=== PATIENT | male | born 1945 | race Caucasian/White ===

== ENCOUNTER → 2018-12-14 | Day surgery (SDC) | payer MEDICARE ==
[~2018-12-14] MED LIST: ASPIR 8181 MG PO; GLUCAGON FOR INJ 1 MG VIAL ONE; HYOSCYAMINE SULFATE 0.5 MG/ML INJ ONE; LIDOCAINE HCL 2% LOCAL INJ 5 ML SDV VIAL INJ ONE; LOSARTAN POTAS100 MG PO; METOPROLOL SUC100 MG PO; MIDAZOLAM HCL 2 MG/2 ML VIAL ONE; PROPOFOL IV EMULSION 10 MG/ML 50 ML VIAL ONE; SIMVASTATIN20 MG PO
--- OUTSIDE RECORDS SUMMARY | 2018-12-14 08:47 | XMS REPORT ---
Author Author [facility] Address Unknown Phone Unavailable Care Team Providers Care Rope Cleaner Name Role Phone VANI SILAS Unavailable Unavailable Problems This patient has no known problems. Allergies, Adverse Reactions, Alerts This patient has no known allergies or adverse reactions. Medications This patient has no known medications. Results Test Description Test Time Test Comments Text Results Atomic Results Result Comments US RENAL RETROPERITONEAL COMP [place] [address] Patient Name: LINDA HARRISON MR #: [id number] : 1945 Age/Sex: 72/M Req #: [id number] Adm Physician: Ordered by: SILAS LUDWIG DO Report #: [id number] Location: Room/Bed: Procedure: [id number] US/US RENAL RETROPERITONEAL COMP Exam Date: Exam Time: REPORT STATUS: Signed PROCEDURE: US RETROPERITONEAL ( KIDNEY ). COMPARISON: None. INDICATIONS: Renal Mass TECHNIQUE: Carlson scale color Doppler ultrasound kidneys FINDINGS: Right: 12.3 x 5 x 5.9 cm. Cortical thickness: 1.8 cm. Left: 11.4 x 5.2 x 5.2 cm. Cortical thickness 1.7 cm. Both kidneys demonstrate normal parenchymal echogenicity. No conspicuous mass or cyst. Stones: Left inferior pole 1 x 0.6 x 1.1 cm Survey views of the urinary bladder are normal. Prostate volume: 41 mL. Core central and peripheral calcification. CONCLUSION: 1. Nonobstructive by 1 cm left inferior pole nephrolithiasis. 2. No evidence of renal mass. Dictated by: Breonna Hill M.D. on 09/23/2017 at 9:51 Electronically approved by: Breonna Hill M.D. on 09/23/2017 at 9:51 Dictated By: BREONNA HILL MD 0 Transcribed By: SHER on 09/23/17950 COPY TO: SILAS LUDWIG DO US THYROID [place] [address] Patient Name: LINDA HARRISON MR #: [id number] : 1945 Age/Sex: 72/M Req #: [id number] Adm Physician: Ordered by: SILAS LUDWIG DO Report #: [id number] Location: US Room/Bed: Procedure: [id number] US/US THYROID Exam Date: Exam Time: REPORT STATUS: Signed PROCEDURE: US THYROID COMPARISON: None. INDICATIONS: Thyroid Mass TECHNIQUE: Carlson scale and color Doppler ultrasound thyroid FINDINGS: Right lobe: 4.1 x 1.9 x 1.5 cm Left lobe: 2.7 x 3.7 x 1.6 cm Isthmus thickness 0.2 cm Normal thyroid parenchyma and color Doppler flow. Right lobe: 0.7 and 0.9 cm benign-appearing spongiform nodules (0 points) Medial 0.6 x 1.2 x 1.1 cm solid, hypoechoic, wider than tall, smooth margin without echogenic foci (4 points) Left lobe: Mid posterior 1.6 x 1.9 x 1.2 cm solid, hypoechoic, wider than tall, smooth margin nodule without central macrocalcification (5 points). CONCLUSION: 1.9 cm moderately suspicious left thyroid nodule. FNA recommended. 1.2 cm moderately suspicious right thyroid nodule. Follow up recommended given size. Followup imaging recommended at 1, 2, 3 and 5 years. ACR TI-RADS recommendations 2017. Dictated by: Breonna Hill M.D. on 09/23/2017 at 10:19 Electronically approved by: Breonna Hill M.D. on 09/23/2017 at 10:19 Dictated By: BREONNA HILL MD [id number] Transcribed By: SHER on 09/23/17 1019 COPY T O: SILAS LUDWIG DO
[2018-12-14 09:48] LABS: BASOPHILS % 0.2 % (0.0-1.0); EOSINOPHILS # (AUTO) 0.1 (0.0-0.4); EOSINOPHILS % 1.1 % (0.0-6.0); HEMATOCRIT 45.5 % (38.2-49.6); HEMOGLOBIN 15.4 g/dL (14.0-18.0); LYMPHOCYTES # (AUTO) 2.4 (1.0-3.2); LYMPHOCYTES % 38.5 % (18.0-39.1); MEAN CORPUSCULAR HEMOGLOBIN 32.2 pg (28-32); MEAN CORPUSCULAR HGB CONC 33.8 g/dL (31-35); MEAN CORPUSCULAR VOLUME 95.2 fL (81-99); MONOCYTES # (AUTO) 0.5 (0.2-0.8); MONOCYTES % 7.9 % (4.4-11.3); NEUTROPHILS # (AUTO) 3.2 (2.1-6.9); PLATELET COUNT 168 x10e3/uL (140-360); RED BLOOD COUNT 4.78 x10e6/uL (4.3-5.7); RED CELL DISTRIBUTION WIDTH 12.4 % (11.7-14.4)
[2018-12-14 13:05] VITALS: BP 134/89
--- NOTE | 2018-12-14 14:07 | Operative Report ---
DATE OF PROCEDURE: December 14, 2018 REFERRING PHYSICIAN: Dr. Felton Ludwig PROCEDURE PERFORMED: Colonoscopy and polypectomy. INDICATIONS FOR COLONOSCOPY: Surveillance colonoscopy and personal history of colon polyps. MEDICATION: Patient was done under MAC. Please see anesthesiologist's note. PROCEDURE: With the patient in the left lateral decubitus position, the flexible fiberoptic Olympus colonoscope was inserted into the rectum with ease and advanced all the way to the cecum. It was then withdrawn slowly, and 2 polyps was snared from the ascending colon. Diverticulosis was scattered pretty much throughout. One polyp was hot biopsied from the sigmoid. One polyp was hot biopsied from the rectum. The scope was then retroflexed into the distal rectum and small internal hemorrhoids were noted, none of which was actively bleeding. The scope was then straightened out. It was subsequently withdrawn. Patient tolerated the procedure well. IMPRESSION 1. Ascending colon polyps times 2, snared. 2. Diverticulosis. 3. Sigmoid colon polyp, hot biopsied. 4. Rectal polyp, hot biopsied. 5. Internal hemorrhoids, none actively bleeding. PLAN: Plan follow up histology. Initiate high-fiber and low-fat diet. Initiate high-fiber supplement. Patient might benefit from a followup colonoscopy in 3 years. Job#: [id number] RI cc:SILAS LUDWIG DO
== END | disposition home or self-care (01) ==
LOC: OR 08:43
PROVIDERS: ATTEND Internal Medicine Gastroenterology
DX: Z12.11 Encounter for screening for malignant neoplasm of colon (principal); D12.2 Benign neoplasm of ascending colon; K62.1 Rectal polyp; K57.30 Diverticulosis of large intestine without perforation or abscess without bleeding; K64.8 Other hemorrhoids; I10 Essential (primary) hypertension; I44.7 Left bundle-branch block, unspecified; I49.1 Atrial premature depolarization; I25.10 Atherosclerotic heart disease of native coronary artery without angina pectoris; Z79.82 Long term (current) use of aspirin
CPT/HCPCS: 36415; 45384; 45385; 85025; 88305; 93005; J1610; J1980; J2001; J2250; 45378